=== PATIENT | male | born 1945 | race Caucasian/White ===

== ENCOUNTER 2016-06-26 09:08 | Emergency (ER) | payer OTHER, MEDICAID ==
[2016-06-26 09:19] VITALS: RESP 16; TEMP 98.6
[2016-06-26] MEDS ORDERED: CEPHALEXIN 500 MG CAP PO ONE (09:47)
--- NOTE | 2016-06-26 10:39 | EDPHY ---
H & P Stated Complaint: L ear inflammation - Personal History Current Tetanus Diphtheria and Acellular Pertussis (TDAP): Yes - Medical/Surgical History Hx Asthma: No Hx Chronic Respiratory Disease: No Hx Diabetes: No Hx Cardiac Disease: No Hx Renal Disease: No Hx Cirrhosis: No Hx Alcoholism: No Hx HIV/AIDS: No Hx Splenectomy or Spleen Trauma: No Other PMH: PSHx: gallbladder, hernia, PS - Social History Smoking Status: Former smoker Time Seen by Provider: 06/26/16 09:31 HPI/ROS: Chief complaint: Left ear pain and swelling History of present illness: This is a 70-year-old male who presents to the emergency department for evaluation of left ear pain and swelling. Patient reports the onset of symptoms over the last 2-3 days. They have been slowly worsening. States initially he had a small skin lesion to the bottom of his ear. She states since then the ear has slowly developed pain and swelling of the entire ear. Further reports recent cold-like symptoms primarily fever, runny nose and cough. Patient denies other associated signs or symptoms including headache, no history of trauma, no discharge from the ear, no difficulty hearing. (Thang Donaldson) - Physical Exam Exam: General Appearance: Alert and no distress. Eyes: Pupils equal and round no injection. ENT: Tympanic membranes, external auditory canals are unremarkable. Diffuse edema to the left ear with associated warmth and tenderness. Right ear is unremarkable. There is no discomfort, tenderness or bogginess on palpation of the mastoid regions bilaterally. Nasopharynx is not injected. There is no rhinorrhea. Oropharynx is not injected. There is no edema. There is no exudate. There is no asymmetry. The uvula is midline. No elevation of the tongue. There is no hoarseness, no drooling, no trismus, no stridor. Respiratory: Chest is nontender, lungs are clear to auscultation. Cardiac: regular rate and rhythm. Musculoskeletal: Neck is supple and nontender. Extremities have full range of motion and are nontender. Skin: Edema to the left ear as discussed above. Small abrasion to the bottom of the ear. No drainable lesions appreciated. Neurological: Alert and oriented. Strength and sensation intact and symmetrical. No meningismus. (Thang Donaldson) Constitutional: Initial Vital Signs Temperature (C) 37 C 06/26/16 09:16 Heart Rate 76 06/26/16 09:16 Respiratory Rate 16 06/26/16 09:16 Blood Pressure 173/82 H 06/26/16 09:16 O2 Sat (%) 93 06/26/16 09:16 O2 Delivery Mode Room Air Allergies/Adverse Reactions: No Known Allergies Allergy (Verified 06/08/15 13:37) Home Medications: Medication Instructions Recorded Lisinopril [Zestril 5 mg (*)] 5 mg PO DAILY #30 tab 05/01/15 Tamsulosin HCl [Flomax 0.4 MG (*)] 0.4 mg PO DAILY #30 cap 05/01/15 buPROPion XL [Wellbutrin 150mg XL] 150 mg PO DAILY@1300 #30 tab 05/01/15 Cephalexin [Keflex] 500 mg PO QID 7 Days 06/26/16 levOFLOXACIN [levAQUIN (*)] 500 mg PO DAILY 7 Days 06/26/16 Medical Decision Making - Diagnostics Imaging: I viewed and interpreted images myself - Diagnostics Imaging Results: Imaging Impressions Chest X-Ray 06/26/16 09:37 Impression: 1. Chronic bronchitis/airways disease. 2. COPD. 3. No definite focal pneumonia. ED Course/Re-evaluation: Patient is discussed with my secondary supervising physician Dr. Monica Stern. Patient presents to the emergency department primarily for left ear pain and swelling. Secondarily for cold symptoms with fever, runny nose and cough. Patient is nontoxic. I am concerned for infection of the left ear. No evidence of complications such as abscess formation, involvement of the external auditory canal, middle ear or mastoid. Patient further appears to be suffering from a respiratory tract infection. Patient started on Keflex for potential skin infection of the ear, levaquin is added for pseudomonal coverage. Patient will be discharged home. He is asked to follow up with his primary care doctor and Ears Nose and Throat doctor for further evaluation and care. Home care has been discussed. Strict return precautions are given. Patient voiced understanding and agreement with plan. (Thang Donaldson) Differential Diagnosis: Included but not limited to cellulitis, abscess, malignant otitis media, mastoiditis, upper respiratory tract infections, lower respiratory tract infections (Thang Donaldson) Other Provider: The patient was evaluated and managed by the Physician Vehicle Fare Collector/ Nurse Practitioner. I discussed the patient's presentation and course with the midlevel provider with them and agree with the evaluation. My co-signature indicates that I have reviewed this chart and I agree with the findings and plan of care as documented. I am the secondary supervising physician. (Monica Stern) - Data Points Medications Given: Discontinued Medications Cephalexin HCl (Keflex) 500 mg PO EDNOW ONE PRN Reason: Protocol Stop: 06/26/16 09:48 Last Admin: 06/26/16 10:02 Dose: 500 mg Levofloxacin (Levaquin) 500 mg PO EDNOW ONE PRN Reason: Protocol Stop: 06/26/16 09:48 Last Admin: 06/26/16 10:02 Dose: 500 mg Departure - Departure Disposition: Home, Routine, Self-Care Clinical Impression: Cellulitis of left ear, Cough Condition: Good Instructions: Cellulitis (ED), Acute Cough (ED) Additional Instructions: Follow-up with an Ears Nose and Throat doctor for recheck of your ear early this week Follow-up with your primary care doctor for your cough and cold symptoms If symptoms worsen or new symptoms develop return to the emergency room for recheck Referrals: Sarah Yan PAC [Primary Care Provider] - As per Instructions Tiago Chavez MD [Medical Doctor] - As per Instructions Prescriptions: Cephalexin [Keflex] 500 mg PO QID 7 Days levOFLOXACIN [levAQUIN (*)] 500 mg PO DAILY 7 Days
[2016-06-26 11:22] VITALS: BP 144/81; PULSE 77; O2SAT 91
== END 2016-06-26 11:21 | disposition home or self-care (01) ==
DX: H60.12 Cellulitis of left external ear (principal); R05 Cough; Z87.891 Personal history of nicotine dependence